=== PATIENT | female | born 1995 | race Two or more races ===

== ENCOUNTER 2017-07-04 07:30 | Emergency (ER) | payer BC, MEDICAID ==
[~2017-07-04] VITALS: Ht 160 cm; Wt 70.3 kg
[2017-07-04] MEDS ORDERED: ALBUTEROL2.5 MG/3 M INH (07:47)
[2017-07-04] MEDS ORDERED: ALBUTEROL SULF8.5 GM INH (07:55)
[2017-07-04] MEDS ORDERED: TESSALON PERLE100 MG ORAL (07:55)
--- NOTE | 2017-07-04 08:09 | Emergency Room Report ---
History of Present Illness General Chief Complaint: Upper Respiratory Illness Source: Patient Present Illness HPI 21-year-old female presents with sore throat cough, runny nose for 3 days. Cough is productive with green phlegm. Pt still eating/drinking well. +sick contacts. No recent travel. No SOB, cp, abdominal pain, n/v/d. Patient states that she has asthma, but has not needed to use her inhaler Allergies: Coded Allergies: No Known Allergies (Unverified , 07/04/17) Patient History Past Medical History: see triage record Past Surgical History: none Pertinent Family History: none Last Menstrual Period: Current Reviewed Nursing Documentation: PMH: Agreed, PSxH: Agreed Nursing Documentation-PMH Past Medical History: No History, Except For Hx Asthma: Yes Review of Systems All Other Systems: negative except mentioned in HPI Physical Exam Vital Signs Date Time Temp Pulse Resp B/P (MAP) Pulse Ox O2 Delivery O2 Flow Rate FiO2 07/04/17 07:44 98.2 107 19 131/76 95 Room Air 98.2 Sp02 EP Interpretation: reviewed, normal General Appearance: alert, GCS 15, non-toxic, mild distress Head: normocephalic, atraumatic Eyes: bilateral eye normal inspection, bilateral eye PERRL, bilateral eye EOMI ENT: normal ENT inspection, normal pharynx, normal voice, moist mucus membranes Neck: normal inspection, full range of motion, supple Respiratory: normal inspection, lungs clear, normal breath sounds, no respiratory distress, no retraction, no wheezing, speaking full sentences, chest symmetrical Cardiovascular #1: normal inspection, regular rate, rhythm, no edema, normal capillary refill Cardiovascular #2: 2+ radial (R), 2+ radial (L) Gastrointestinal: normal inspection, non tender, soft, non-distended, no guarding Musculoskeletal: normal inspection, back normal, normal range of motion, non- tender Neurologic: normal inspection, alert, oriented x3, responsive, motor strength/ tone normal, sensory intact, normal gait, speech normal Psychiatric: normal inspection, judgement/insight normal, memory normal Skin: normal inspection, normal color, no rash, warm/dry, well hydrated, normal turgor Medical Decision Making Diagnostic Impression: Primary Impression: Upper respiratory infection ER Course 21-year-old female with, runny nose, cough Appears non- toxic, well hydrated, tolerating PO DDX: Viral URI /unlikely to be pneumonia , lung exam normal, no wheezing Plan: None in Emergency Room ER course: Pt stable in ED, remains nontoxic appearing, no sob. Tolerating PO Disposition: Patient discharged to home with Rolando Segal and refill for her albuterol Patient instructed to follow up with PMD in 1 week. Also instructed to take motrin/tylenol at home. Very strict return precautions discussed with patient such as intractable fever and chills, unable to eat or drink, severe chest pain or shortness of breath. Patient verbalized understanding and agrees with plan. Please note that this Emergency Department Report was dictated using [employer] apprentice technology software, occasionally this can lead to erroneous entry secondary to interpretation by the dictation equipment Last Vital Signs Date Time Temp Pulse Resp B/P (MAP) Pulse Ox O2 Delivery O2 Flow Rate FiO2 07/04/17 07:44 98.2 107 19 131/76 95 Room Air 98.2 Disposition: HOME, SELF-CARE Condition: Improved Scripts Albuterol Sulfate* (ALBUTEROL SULFATE MDI*) 8.5 Gm Hfa.aer.ad 2 PUFF INH Q4H Y for cough/wheezing, #1 EA 0 Refills Prov: Marino Trent M.D. 07/04/17 Benzonatate* (TESSALON PERLE*) 100 Mg Capsule 100 MG ORAL THREE TIMES A DAY for 7 Days, #21 PERLE 0 Refills Prov: Marino Trent M.D. 07/04/17 Referrals: NOT CHOSEN IPA/,REFERRING (PCP) Patient Instructions: Upper Respiratory Infection, Adult Marino Trent M.D. Jul 04, 2017 08:09
[2017-07-04 11:00] VITALS: BP 131/76
[2017-07-04 11:11] VITALS: BP 127/81
[2017-07-05] MEDS ORDERED: TYLENOL EXTRA500 MG ORAL (19:15)
[2017-07-05] MEDS ORDERED: PROMETHAZINE-C118 M1 ORAL (19:15)
[2017-07-05] MEDS ORDERED: ZITHROMAX250 MG ORAL (19:15)
[2017-07-05] MEDS ORDERED: CLARITIN-D 121 EAC1 ORAL (19:15)
[2017-07-05] MEDS ORDERED: PREDNISONE20 MG ORAL (19:20)
== END 2017-07-04 11:11 | disposition home or self-care (01) ==
LOC: EMR 07:59
DX: J06.9 Acute upper respiratory infection, unspecified (principal); J45.909 Unspecified asthma, uncomplicated
CPT/HCPCS: 99284

== ENCOUNTER 2017-07-05 17:55 | Emergency (ER) | payer BC, MEDICAID ==
[~2017-07-05] VITALS: Ht 160 cm; Wt 70.3 kg
[~2017-07-05 17:55] MED LIST: ALBUTEROL SULF8.5 GM INH; ALBUTEROL2.5 MG/3 M INH; TESSALON PERLE100 MG ORAL
[2017-07-05 18:27] VITALS: BP 106/62
--- NOTE | 2017-07-05 19:13 | Emergency Room Report ---
History of Present Illness General Chief Complaint: Upper Respiratory Illness Source: Patient Present Illness HPI 21-year-old female presents to the emergency department complaining of 9/10 in severity progressive sore throat and productive cough. Patient reports fevers and chills. Has been taking Motrin to manage fevers and pain and last dose was one hour prior to arrival. Patient reports she was seen here in the emergency department yesterday and was told to return if she has worsening of her symptoms. Patient works multiple ill contacts. Reports pain is exacerbated upon swallowing and coughing. Pt. reports fevers of 102 and 103 at home. Denies ear pain, high fevers, lethargy, neck pain/stiffness, irritability, photophobia dehydration, N/V/D. Denies Cp, Palpitations, LOC, AMS, seizures, paresthesias, or changes in Hearing or vision, no Sudden severe GRANADOS. Allergies: Coded Allergies: No Known Allergies (Unverified , 07/04/17) Patient History Past Medical History: see triage record Past Surgical History: none Pertinent Family History: none Last Menstrual Period: 07/01/17 Now: No : 0 Reviewed Nursing Documentation: PMH: Agreed, PSxH: Agreed Nursing Documentation-PMH Past Medical History: No History, Except For Hx Asthma: Yes Review of Systems All Other Systems: negative except mentioned in HPI Physical Exam Vital Signs Date Time Temp Pulse Resp B/P (MAP) Pulse Ox O2 Delivery O2 Flow Rate FiO2 07/05/17 18:03 100.0 125 22 106/62 95 Room Air 100.0 Sp02 EP Interpretation: reviewed, normal General Appearance: no apparent distress, alert, GCS 15, non-toxic Head: normocephalic, atraumatic Eyes: bilateral eye normal inspection, bilateral eye PERRL ENT: hearing grossly normal, normal voice, TMs + canals normal, uvula midline, moist mucus membranes, nasal congestion, tonsillar swelling, pharyngeal erythema , other - no exudates noted. Neck: full range of motion, no meningismus, no bony tend Respiratory: chest non-tender, lungs clear, normal breath sounds, no respiratory distress, no accessory muscle use, speaking full sentences, wheezing Cardiovascular #1: regular rate, rhythm Musculoskeletal: back normal, gait/station normal, normal range of motion, non- tender Neurologic: alert, oriented x3, responsive, motor strength/tone normal, sensory intact, speech normal, grossly normal Psychiatric: judgement/insight normal Skin: normal color, no rash, warm/dry, well hydrated Lymphatic: no adenopathy Medical Decision Making PA Attestation Dr. Duarte is my supervising Physician whom patient management has been discussed with. Diagnostic Impression: Primary Impression: Atypical pneumonia Additional Impression: History of asthma ER Course 21-year-old female presents to the emergency department complaining of 9/10 in severity progressive sore throat and productive cough. Patient reports fevers and chills. Has been taking Motrin to manage fevers and pain and last dose was one hour prior to arrival. Patient reports she was seen here in the emergency department yesterday and was told to return if she has worsening of her symptoms. Patient works multiple ill contacts. has hx of asthma and rx'd inhalers and nebs are not improving her symptoms. Reports pain is exacerbated upon swallowing and coughing. Pt. reports fevers of 102 and 103 at home. Denies ear pain, high fevers, lethargy, neck pain/stiffness, irritability, photophobia dehydration, N/V/D. Denies Cp, Palpitations, LOC, AMS, seizures, paresthesias, or changes in Hearing or vision, no Sudden severe GRANADOS. Ddx considered but are not limited to URI, pneumonia, PE, strep pharyngitis, meningitis. Vital signs: Tachycardic otherwise Pt. is afebrile, the remaining VS are WNL H&PE are most consistent with atypical pneumonia/ Persistent URI in an Asthmatic pt. with productive cough and progression of symptoms. despite using previously rx'd medications. ORDERS: none required at this time, the diagnosis is clinical ED INTERVENTIONS: -Tylenol PO for pain -Pt. declined nebulized tx here in ED. --PT. EDUCATION: Discussed antibiotic resistance with inappropriate prescribing of antibiotics for viral illnesses. Discussed signs and symptoms to indicate viral illness versus bacterial illness. DISCHARGE: At this time pt. is stable for d/c to home. Will provide printed patient care instructions, and any necessary prescriptions. Care plan and follow up instructions have been discussed with the patient prior to discharge. Last Vital Signs Date Time Temp Pulse Resp B/P (MAP) Pulse Ox O2 Delivery O2 Flow Rate FiO2 07/05/17 19:01 100.0 07/05/17 18:27 20 106/62 95 Room Air 07/05/17 18:03 125 Disposition: HOME, SELF-CARE Condition: Stable Scripts Prednisone* (PREDNISONE*) 20 Mg Tablet 40 MG ORAL DAILY for 5 Days, #10 TAB Prov: Lisa Coleman 07/05/17 Loratadine/Pseudoephedrine (CLARITIN-D 12 HOUR TABLET) 1 Each Tab.er.12h 1 TAB ORAL EVERY 12 HOURS for 5 Days, #10 TAB Prov: Lisa Coleman 07/05/17 Azithromycin* (ZITHROMAX*) 250 Mg Tablet 250 MG ORAL DAILY for 5 Days, #6 TAB 0 Refills Take two tables once daily for 1 day, then one tablet once daily for 4 days. Prov: Lisa Coleman 07/05/17 Acetaminophen* (TYLENOL EXTRA STRENGTH*) 500 Mg Tablet 500 MG ORAL Q6H Y for Mild Pain/Temp > 100.5, #20 TAB 0 Refills Prov: Lisa Coleman 07/05/17 Codeine/Promethazine Hcl* (PROMETHAZINE-CODEINE SYRUP*) 118 Ml Syrup 5 ML ORAL Q6H Y for For Cough, #120 ML 0 Refills Prov: Lisa Coleman 07/05/17 Departure Forms: Return to Work Return to Work Date: Jul 09, 2017 Work Restrictions: None Other Restrictions: may return sooner if symptoms resolve. Return to Full Activity: Jul 09, 2017 Patient Instructions: Upper Respiratory Infection, Adult Additional Instructions: Take medications as directed. Follow up with a Primary Care Provider in 3-5 days, even if your symptoms have resolved. --Please review list of primary care clinics, if you do not already have a primary care provider Return sooner to ED if new symptoms occur, or current symptoms become worse. Do not drink alcohol, drive, or operate heavy machinery while taking Cough Syrup as this may cause drowsiness. - Please note that this Emergency Department Report was dictated using [employer] operator technology software, occasionally this can lead to erroneous entry secondary to interpretation by the dictation equipment. Lisa Coleman Jul 05, 2017 19:13
[2017-07-05] MEDS ORDERED: TYLENOL EXTRA500 MG ORAL (19:15)
[2017-07-05] MEDS ORDERED: ZITHROMAX250 MG ORAL (19:15)
[2017-07-05] MEDS ORDERED: CLARITIN-D 121 EAC1 ORAL (19:15)
[2017-07-05] MEDS ORDERED: PROMETHAZINE-C118 M1 ORAL (19:15)
[2017-07-05] MEDS ORDERED: PREDNISONE20 MG ORAL (19:20)
[2017-07-05 19:27] VITALS: BP 106/62
== END 2017-07-05 19:27 | disposition home or self-care (01) ==
LOC: EMR 18:32
DX: J18.9 Pneumonia, unspecified organism (principal); J45.909 Unspecified asthma, uncomplicated
CPT/HCPCS: 99284

== ENCOUNTER 2020-03-08 11:53 | Emergency (ER) | payer OTHER, MEDICAID ==
[~2020-03-08] VITALS: Ht 162.6 cm; Wt 82.1 kg
[~2020-03-08 11:53] MED LIST changes: +CLARITIN-D 121 EAC1 ORAL; +PREDNISONE20 MG ORAL; +PROMETHAZINE-C118 M1 ORAL; +TYLENOL EXTRA500 MG ORAL; +ZITHROMAX250 MG ORAL
--- NOTE | 2020-03-08 12:11 | Emergency Room Report ---
History of Present Illness General Chief Complaint: Asthma Source: Patient Present Illness HPI Disclaimer: Please note that this report is being documented using [employer] technology. This can lead to erroneous entry secondary to incorrect interpretation by the dictating instrument. HPI: 24-year-old female with history of asthma presents for evaluation of shortness of breath. She has been without her albuterol inhaler for some time is not seen her PMD in several months. Reports several days of progressively worsening shortness of breath and nonproductive cough that is sometimes worse at night. Denies fever or chills. Denies chest pain, diaphoresis, nausea, v omiting, diarrhea. No recent sick contacts. Family members recently were tested negative for COVID-19. No recent steroid use. No recent antibiotic use. PMH: Asthma PSH: Reviewed Allergies: Seasonal allergies Social Hx: Denied Allergies: Coded Allergies: No Known Allergies (Unverified , 07/04/17) COVID-19 Screening Contact w/high risk pt: No Experienced COVID-19 symptoms?: Yes COVID-19 Testing performed INSPECTOR RETURNED MATERIALS: No Patient History Last Menstrual Period: 02/26/20 Now: No Nursing Documentation-PMH Hx Asthma: Yes Review of Systems All Other Systems: negative except mentioned in HPI Physical Exam Vital Signs Date Time Temp Pulse Resp B/P (MAP) Pulse Ox O2 Delivery O2 Flow Rate FiO2 03/08/20 12:04 98.6 87 18 General: Awake and alert, no acute distress HEENT: NC/AT. EOMI. no stridor. Normal phonation. Resp: Increased work of breathing. Inspiratory expiratory wheezes bilaterally. No crackles. Mildly tachypneic Skin: Intact. No abrasions, laceration or rash over the exposed skin MSK: Normal tone and bulk. Moving all extremities. No obvious deformity. Neuro: Awake and alert. Mentating appropriately Procedures Critical Care Time Critical Care Time Total critical care time: Approximately 45 minutes Due to a high probability of clinically significant, life threatening deterioration, the patient required the highest level of preparedness to intervene emergently and I personally spent this critical care time directly and personally managing the patient. This critical care time included obtaining a history, examining the patient, pulse oximetry, ordering and reviewing studies, ordering treatments, evaluating response to treatment and updating management plan as needed, frequent reassessment and discussion with other providers as well as arranging for ultimate disposition. This critical to care time was performed to assess and manage the high probability of life-threatening deterioration that could result in multiorgan failure. This critical care time is separate from the separately billable procedures and treating other patients. Medical Decision Making Diagnostic Impression: Primary Impression: Asthma exacerbation ER Course Is a 24-year-old female history of asthma presenting for evaluation of shortness of breath. Differential includes is not limited to bronchitis, pneumonia, asthma exacerbation, allergic reaction to name a few. Exam is most consistent with asthma exacerbation. Microbiology Date/Time Source Procedure Growth Status 03/08/20 12:03 Nasopharynx SARS-CoV-2 RdRp Gene Assay - Final Complete Chest X-Ray Diagnostic Results Chest X-Ray Diagnostic Results : Chest X-Ray Ordered: Yes # of Views/Limited/Complete: 1 View Indication: Shortness of Breath EP Interpretation: Yes Interpretation: no consolidation, no effusion, no pneumothorax, no acute cardiopulmonary disease Impression: No acute disease Electronically Signed by: Electronically signed by Dr. Moncho Isaacs Last Vital Signs Date Time Temp Pulse Resp B/P (MAP) Pulse Ox O2 Delivery O2 Flow Rate FiO2 03/08/20 12:08 87 18 03/08/20 12:08 98.6 Disposition: HOME, SELF-CARE Condition: Improved Scripts Albuterol Sulfate (VENTOLIN HFA) 18 Gm Hfa.aer.ad 2 PUFFS INH EVERY 6 HOURS, #18 GM 0 Refills Prov: Moncho Isaacs MD 03/08/20 Prednisone* (PREDNISONE*) 20 Mg Tablet 40 MG ORAL DAILY for 5 Days, #10 TAB Prov: Moncho Isaacs MD 03/08/20 Benzonatate* (TESSALON PERLE*) 100 Mg Capsule 100 MG ORAL THREE TIMES A DAY for 7 Days, #21 PERLE 0 Refills Prov: Moncho Isaacs MD 03/08/20 Albuterol Sulfate* (ALBUTEROL SULFATE HHN*) 2.5 Mg/3 Ml Vial.neb 3 ML INH Q6H PRN for Shortness of Breath, #30 EA 0 Refills Prov: Moncho Isaacs MD 03/08/20 Moncho Isaacs MD Mar 08, 2020 12:11
[2020-03-08] MEDS ORDERED: VENTOLIN HFA18 GM INH (12:26)
[2020-03-08] MEDS ORDERED: PREDNISONE20 MG ORAL (12:26)
[2020-03-08] MEDS ORDERED: ALBUTEROL2.5 MG/3 M INH (12:26)
[2020-03-08] MEDS ORDERED: TESSALON PERLE100 MG ORAL (12:26)
[2020-03-08] MEDS: Albuterol/Ipratropium 3ml neb HHN SCH ×2 (12:47→12:48)
--- NOTE | 2020-03-08 12:47 | Diagnostic Imaging Report ---
EXAM: XR Chest, 1 View CLINICAL HISTORY: SOB TECHNIQUE: Frontal view of the chest. COMPARISON: No relevant prior studies available. FINDINGS: Lungs: Unremarkable. No consolidation. Pleural space: Unremarkable. No pneumothorax. Heart: Unremarkable. No cardiomegaly. Mediastinum: Unremarkable. Bones/joints: Slight levocurvature may be positional. IMPRESSION: No evidence of acute pulmonary disease
[2020-03-08 13:08] VITALS: BP 118/80
== END 2020-03-08 13:08 | disposition home or self-care (01) ==
LOC: EMR 12:30
DX: J45.901 Unspecified asthma with (acute) exacerbation (principal); R06.82 Tachypnea, not elsewhere classified
CPT/HCPCS: 71045; 94640; 99291; J7512; U0002; J7620